=== PATIENT | male | born 1980 | race Caucasian/White ===

== ENCOUNTER 2021-01-06 20:02 | Emergency (ER) | payer OTHER ==
[~2021-01-06] VITALS: Ht 175.3 cm; Wt 81.7 kg
[2021-01-06 20:05] VITALS: BP 132/91
[2021-01-06] MEDS ORDERED: AMOXICILLIN500 M1 PO (20:15)
== END 2021-01-06 20:28 | disposition home or self-care (01) ==
LOC: ER 20:02
DX: K04.7 Periapical abscess without sinus (principal)